=== PATIENT | female | born 1975 | race Caucasian/White ===

== ENCOUNTER → 2018-02-27 15:50 | Outpatient (CLI) | payer BC, OTHER, SELFPAY ==
--- NOTE | 2018-02-27 15:51 | DI.RAD.S_ITS ---
PROCEDURE: XR FOOT RT MIN 3V INDICATIONS: right foot pain without injury of 8-12 week duration TECHNIQUE: 3 views of the foot were acquired. COMPARISON: [facility], , FOOT 3V RIGHT, 05/02/2012, 15:06. [facility], , FOOT 3V LEFT, 05/02/2012, 15:01. FINDINGS: Bones: No fractures or dislocations. No suspicious bony lesions. Soft tissues: No tibiotalar joint effusion. Achilles tendon appears normal. IMPRESSION: No trauma found, source of persistent right foot pain is not identified. Dictated by: Feliciano Dan M.D. on 02/27/2018 at 16:21 Approved by: Feliciano Dan M.D. on 02/27/2018 at 16:21
== END ==
PROVIDERS: Family Provider Family Medicine; PCP Family Medicine; Visit Provider Nurse Practitioner Family
DX: M79.671 Pain in right foot (principal)
CPT/HCPCS: 73630

== ENCOUNTER → 2018-05-02 09:19 | Outpatient (CLI) | payer BC, OTHER, SELFPAY ==
[2018-05-02 10:22] LABS: Add Manual Diff / Slide Review NO; Basophils Percent Auto 0.5 % (0-2); Eosinophils Percent Auto 1.8 % (2-4); Hematocrit 38.4 % (36-46); Hemoglobin 13.6 g/dL (12.0-16.0); Lymphocytes Percent Auto 25.8 % (25-40); Mean Corpuscular HGB Conc 35.5 % (30-36); Mean Corpuscular Hemoglobin 31.7 PG (26-34); Mean Corpuscular Volume 89.3 fL (80-100); Monocytes Percent Auto 5.9 % (3-14); Neutrophils Absolute Auto 5400 /uL (3000-5900); Platelet Count 290 X10^3/uL (150-400); Red Cell Distribution Width 13.9 % (11.6-14.8); White Blood Cell Count 8.2 X10^3/uL (4.5-11.0)
[2018-05-02 10:57] LABS: Alanine Aminotransferase 50 IU/L (9-52); Albumin 4.2 g/dL (3.5-5.0); Albumin Globulin Ratio 1.4 (1.0-2.8); Alkaline Phosphatase 81 U/L (38-126); Aspartate Aminotransferase 39 IU/L (14-36); BUN Creatinine Ratio 16.7 (6-22); Bilirubin Total 0.4 mg/dL (0.2-1.3); Blood Urea Nitrogen 10 mg/dL (7-17); Calcium 9.2 mg/dL (8.4-10.2); Carbon Dioxide 30 mmol/L (22-32); Chloride 104 mmol/L (98-107); Cholesterol 183 mg/dL (140-199); Estimated Glomerular Filt Rate > 60.0 mL/min (>60); Glucose 118 mg/dL (70-100); HDL Cholesterol 46 mg/dL (40-60); HEMOLYSIS < 15 (0-50); LDL Cholesterol Calculated 96 mg/dL (<100); Potassium 4.1 mmol/L (3.4-5.1); Sodium 143 mmol/L (137-145); Total Protein 7.2 g/dL (6.3-8.2); Triglycerides 204 mg/dL (35-150)
[2018-05-02 11:30] LABS: Thyroid Stimulating Hormone 2.06 uIU/mL (0.47-4.68)
== END ==
PROVIDERS: Family Provider Family Medicine; PCP Family Medicine; Visit Provider Family Medicine
DX: Z00.00 Encounter for general adult medical examination without abnormal findings (principal)
CPT/HCPCS: 36415; 80053; 80061; 84443; 85025

== ENCOUNTER → 2018-05-23 08:31 | Outpatient (CLI) | payer BC, OTHER, SELFPAY ==
--- NOTE | 2018-05-23 09:44 | DI.CT.S_ITS ---
PROCEDURE: CT ABDOMEN PELVIS W CON INDICATIONS: Right sided upper, lower and flank pain TECHNIQUE: After the administration of oral and intravenous contrast, 5 mm thick sections acquired from the diaphragms to the symphysis. 5 mm thick coronal and sagittal reformats were performed. For radiation dose reduction, the following was used: automated exposure control, adjustment of mA and/or kV according to patient size. COMPARISON: [facility], CT, ABDOMEN/PELVIS WITH CONTRAST, 05/12/2015, 8:16. FINDINGS: Image quality: Excellent. ABDOMEN: Lung bases: Lung bases are clear. Heart size is normal. Solid organs: Liver is enlarged, and demonstrates diffusely decreased density, indicating fatty infiltration. Gallbladder is within normal limits. Biliary system is non-dilated. Pancreas enhances normally. Spleen is normal in size and enhancement. There is a 4 mm diameter fat containing nodule within the medial limb of the right adrenal gland. No left adrenal nodules. Kidneys are normal in size and enhancement, without hydronephrosis. Peritoneum and bowel: Stomach, small bowel, and colon loops are normal in caliber and wall thickness. No free fluid or air. Normal appendix. Nodes and vessels: No retroperitoneal or mesenteric adenopathy. Aorta and inferior vena cava are normal in caliber. Miscellaneous: No ventral hernias. PELVIS: Genitourinary: Bladder wall thickness is normal. Miscellaneous: No inguinal hernias or adenopathy. Bones: No suspicious bony lesions. No vertebral body compression fractures. IMPRESSION: 1. No acute process. 2. Hepatic steatosis. 3. Normal appendix. Dictated by: Lakshmi Lopez M.D. on 05/23/2018 at 11:03 Approved by: Lakshmi Lopez M.D. on 05/23/2018 at 11:06
== END ==
PROVIDERS: PCP Family Medicine; Visit Provider Family Medicine
DX: R10.31 Right lower quadrant pain (principal); R10.11 Right upper quadrant pain
CPT/HCPCS: 74177; Q9967

== ENCOUNTER → 2019-01-09 12:25 | Outpatient (CLI) | payer BC, OTHER, SELFPAY ==
--- NOTE | 2019-01-09 | DI.MG.S_ITS ---
BILATERAL DIGITAL SCREENING MAMMOGRAM 3D/2D WITH CAD: 01/09/2019 CLINICAL: Routine screening. Family history of breast cancer. Comparison is made to exams dated: 09/06/2017 mammogram, 05/27/2015 mammogram, and 02/27/2013 mammogram - [facility]. There are scattered fibroglandular elements in both breasts. Current study was also evaluated with a Computer Aided Detection (CAD) system. No significant masses, calcifications, or other findings are seen in either breast. There has been no significant interval change. IMPRESSION: NEGATIVE There is no mammographic evidence of malignancy. A 1 year screening mammogram is recommended. This exam was interpreted at Station ID: [id number]. NOTE: For mammograms, a report in lay terms will be sent to the patient. Approximately 15% of breast malignancies will not be visualized mammographically. In the management of a palpable breast mass, a negative mammogram must not discourage biopsy of a clinically suspicious lesion. Electronically Signed By: Neptali corey/magaly:01/11/2019 06:26:02 letter sent: Normal Exam ACR BI-RADS Category 1: Negative [id number]
== END ==
PROVIDERS: PCP Family Medicine; Visit Provider Family Medicine
DX: Z12.31 Encounter for screening mammogram for malignant neoplasm of breast (principal); Z80.3 Family history of malignant neoplasm of breast
CPT/HCPCS: 77063; 77067

== ENCOUNTER → 2019-04-24 15:01 | Outpatient (CLI) | payer BC, OTHER, SELFPAY ==
[2019-04-24 15:18] LABS: Add Manual Diff / Slide Review NO; Basophils Absolute Auto 100 /uL (0-100); Basophils Percent Auto 0.8 % (0-2); Eosinophils Absolute Auto 100 /uL (0-450); Eosinophils Percent Auto 1.4 % (2-4); Hematocrit 40.2 % (36-46); Hemoglobin 13.8 g/dL (12.0-16.0); Lymphocytes Absolute Auto 2600 /uL (1100-4500); Lymphocytes Percent Auto 29.1 % (25-40); Mean Corpuscular HGB Conc 34.2 % (30-36); Mean Corpuscular Hemoglobin 29.9 PG (26-34); Mean Corpuscular Volume 87.5 fL (80-100); Monocytes Absolute Auto 500 /uL (0-900); Neutrophils Absolute Auto 5700 /uL (1500-7000); Neutrophils Percent Auto 62.7 % (50-75); Platelet Count 257 X10^3/uL (150-400); Red Cell Distribution Width 14.4 % (11.6-14.8)
[2019-04-24 15:25] LABS: RBC Urine None Seen (0-5/HPF)
[2019-04-24 15:36] LABS: Erythrocyte Sedimentation Rate 18 MM/HR (0-20)
[2019-04-24 15:37] LABS: Appearance Urine UA CLEAR; Bilirubin Urine UA NEGATIVE (NEGATIVE); Color Urine UA YELLOW; Glucose Urine UA 1+ g/dL (Negative); Ketones Urine UA NEGATIVE (NEGATIVE); Leukocyte Esterase Urine UA NEGATIVE (NEGATIVE); Nitrite Urine UA NEGATIVE (Negative); Occult Blood Urine UA NEGATIVE (Negative); Protein Urine UA 1+ (Negative); Specific Gravity Urine UA 1.025 (1.000-1.035); Urobilinogen Urine UA 0.2 E.U./dL (0.2)
[2019-04-24 15:47] LABS: Amorphous Sediment Urine 1+; Bacteria Urine Many (>30); Culture Indicated Urine Specimen Cultured; Mucus Urine 4+ (Negative); Squamous Epithelial Cell Urine 5-10 /HPF (0-5/HPF); WBC Urine 5-10/HPF (0-5/HPF)
[2019-04-24 16:04] LABS: Alanine Aminotransferase 59 IU/L (9-52); Albumin 4.3 g/dL (3.5-5.0); Albumin Globulin Ratio 1.5 (1.0-2.8); Alkaline Phosphatase 124 U/L (38-126); Amylase 47 U/L (30-110); Aspartate Aminotransferase 68 IU/L (14-36); Bilirubin Total 0.6 mg/dL (0.2-1.3); Blood Urea Nitrogen 6 mg/dL (7-17); C-Reactive Protein Quant 1.6 mg/dL (<1.0); Calcium 9.6 mg/dL (8.4-10.2); Carbon Dioxide 30 mmol/L (22-32); Chloride 98 mmol/L (98-107); Estimated Glomerular Filt Rate > 60.0 mL/min (>60); Globulin 2.9 g/dL (1.7-4.1); Glucose 198 mg/dL (70-100); HEMOLYSIS < 15 (0-50); Lipase 113 U/L (23-300); Potassium 3.7 mmol/L (3.4-5.1); Sodium 138 mmol/L (137-145); Total Protein 7.2 g/dL (6.3-8.2)
[2019-04-25 19:13] LABS: Hemoglobin A1C% w Est Avg Glu 10.1 % (4.0-6.0)
== END ==
PROVIDERS: PCP Family Medicine; Visit Provider Family Medicine
DX: R10.9 Unspecified abdominal pain (principal); E78.2 Mixed hyperlipidemia
CPT/HCPCS: 36415; 80053; 81001; 82150; 83036; 83690; 85025; 85651; 86140; 87077; 87086

== ENCOUNTER → 2019-05-01 13:09 | Outpatient (CLI) | payer BC, OTHER, SELFPAY ==
--- NOTE | 2019-05-01 13:13 | DI.US.S_ITS ---
PROCEDURE: US PELVIC COMPLETE INDICATIONS: PELVIC PAIN TECHNIQUE: Real-time scanning was performed of the pelvic organs, with image documentation. Additional endovaginal scanning was necessary due to incomplete visualization of the adnexal and endometrial structures by transabdominal scanning. COMPARISON: [facility], , PELVIC COMPLETE, 04/14/2015, 8:22. FINDINGS: Transabdominal scanning: Limited scanning through the kidneys shows no hydronephrosis. No pathologic free abdominal or pelvic fluid. Endovaginal scanning: Uterus: Surgically absent. Ovaries: Ovaries not identified. No adnexal masses. IMPRESSION: Limited exam. The ovaries are not identified. No free fluid in the pelvis. Uterus is surgically absent. If pain persist with conservative management, consider CT. Dictated by: Mike ORANTES Interpreted: Andrew Mcmullen MD on 05/01/2019 at 15:57 Approved by: Andrew Mcmullen M.D. on 05/01/2019 at 17:16
== END ==
PROVIDERS: PCP Family Medicine; Visit Provider Family Medicine
DX: R10.2 Pelvic and perineal pain (principal); Z90.710 Acquired absence of both cervix and uterus
CPT/HCPCS: 76830; 76856

== ENCOUNTER 2019-05-05 15:50 | Emergency (ER) | payer BC, OTHER, SELFPAY ==
[2019-05-05 15:57] VITALS: BP 121/60; PULSE 87; RESP 14; TEMP 36.8; O2SAT 96
--- NOTE | 2019-05-05 16:23 | ED_ITS ---
HPI - Headache General Chief Complaint: Headache Stated Complaint: vision loss/blurriness,migraines past week Time Seen by Provider: 05/05/19 15:58 Source: patient Mode of arrival: Ambulatory Limitations: no limitations History of Present Illness HPI Narrative: Patient comes emergency department complaining of headaches and blurry vision for the last week. Patient has a new diagnosis of diabetes just over 1 week ago, and was started on metformin for this. She states that her symptoms started within a day or to starting metformin. Patient states that she has not been nauseated and has no history of migraines. No recent head injury. No fever chills. No neck pain. She states on the day she was diagnosed, her blood sugar was 198 and her hemoglobin A1c was over 10. Related Data Home Medications Medication Instructions Recorded Confirmed CHOLECALCIFEROL (VITAMIN D) 2,000 iu PO #0 04/07/11 04/24/19 Previous Rx's Medication Instructions Recorded estradiol [Estrace] 1 gm VAGINAL 2X/WEEK #120 gm 07/03/17 furosemide 40 mg tablet 40 mg PO QDAY PRN #90 tab 03/11/19 citalopram 20 mg tablet 60 mg PO QDAY #270 tab 04/24/19 gabapentin 300 mg capsule 600 mg PO BEDTIME #180 cap 04/24/19 lovastatin 20 mg tablet 20 mg PO HS #90 tab 04/24/19 mirtazapine 15 mg tablet 30 mg PO BEDTIME #60 tab 04/24/19 omeprazole 40 mg capsule,delayed 40 mg PO BID #180 cap 04/24/19 release metformin 500 mg tablet 250 mg PO BID #45 tab 04/26/19 clonazepam 0.5 mg tablet 0.5 mg PO BIDP #180 tab 04/29/19 Allergies Allergy/AdvReac Type Severity Reaction Status Date / Time ciprofloxacin Allergy Severe SEVERE Verified 04/24/19 14:27 NAUSEA Review of Systems Constitutional Constitutional: Denies chills, Denies fatigue, Denies fever(s), Denies frequent falls, Reports headache(s), Denies lethargy and Denies weakness Eyes Eyes: Reports blurry vision, Denies change in vision, Denies eye discharge, Denies irritation and Denies loss of vision ENT Ears, Nose, Mouth, and Throat: Denies change in voice, Denies dizziness, Reports headache(s), Denies neck pain, Denies sore throat and Denies throat swelling Cardiovascular Cardiovascular: Denies chest pain, Denies irregular heart rhythm, Denies lightheadedness, Denies palpitations, Denies dyspnea, Denies dyspnea on exertion and Denies orthopnea Respiratory Respiratory: Denies cough, Denies dyspnea, Denies dyspnea on exertion and Denies wheezing Gastrointestinal Gastrointestinal: Denies abdominal pain, Denies change in bowel habits, Denies diarrhea, Denies nausea and Denies vomiting Genitourinary Genitourinary: Denies hematuria, Denies flank pain, Denies urinary incontinence and Denies urinary urgency Comments: Polyuria Musculoskeletal Musculoskeletal: Denies back pain, Denies muscle weakness, Denies neck pain, Denies numbness and Denies tingling Integumentary/Breasts Skin/Breast: Denies pruritus, Denies erythema, Denies rash and Denies wounds Neurologic Neurologic: Denies behavioral changes, Denies confusion, Denies dizziness, Denies frequent falls, Reports headache(s), Denies loss of vision, Denies numbness, Denies tingling and Denies weakness Psychiatric Psychiatric: Denies anxiety, Denies behavioral changes, Denies confusion, Denies depression, Denies homicidal ideation and Denies suicidal ideation Endocrine Endocrine: Denies fatigue, Denies flushing, Reports polydipsia, Reports polyuria and Denies palpitations Hematologic/Lymphatic Hematologic/Lymphatic: Denies easy bruising Allergic/Immunologic Allergic/Immunologic: Denies urticaria, Denies throat swelling and Denies wheezing [facility] Medical History Lumbago (Chronic) Surgical History History of laparoscopy (Resolved) Status post laparoscopic supracervical hysterectomy (Resolved 12/14/10) Family History Brother CAD (coronary artery disease) Social History Smoking Status: Current every day smoker Family History Brother CAD (coronary artery disease) Social History Smoking Status: Current every day smoker Exam Initial Vital Signs Initial Vital Signs: Vital Signs Temperature 98.2 F 05/05/19 15:57 Pulse Rate 87 05/05/19 15:57 Respiratory Rate 14 05/05/19 15:57 Blood Pressure 121/60 05/05/19 15:57 Pulse Oximetry 96 05/05/19 15:57 Const General: cooperative and well developed Nutritional Appearance: well nourished Orientation: alert, awake, oriented x3 and not confused [facility] Head: normocephalic and atraumatic Ears: external ears normal and TM's normal bilaterally Nose: external nose normal and No nasal discharge Face and sinus: sinuses nontender, face symmetric, no sinus tenderness and No dry mucous membranes Mouth: oral mucosae normal and moist mucous membranes Teeth and gingiva: dentition normal Throat: tonsils normal and uvula midline Eyes General: appearance normal, both eyes and all related structures Eyelids: eyelids normal Conjunctivae: conjunctivae normal Sclera: sclerae normal Pupils: PERRL EOM: EOM intact bilaterally Neck Neck: normal visual inspection, trachea midline, No lymphadenopathy, No midline deformity and No JVD Lymphatic: No lymphedema Chest Chest: normal inspection of the chest Resp Effort & Inspection: normal respiratory effort, able to speak in complete sentences, no respiratory distress and no use of accessory muscles Auscultation: clear to auscultation bilaterally, no rales, no rhonchi and no wheezes Cardio Rate: regular rate Rhythm: regular rhythm Heart Sounds: no click, no gallops, no murmurs and no rubs Pulses: normal peripheral pulses GI Inspection: non-distended Palpation: soft, no hepatosplenomegaly, No guarding, No pulsatile mass and No tender Auscultation: normal bowel sounds Back/Spine/Pelvis Back: No CVA tenderness Cervical Spine: cervical ROM normal and No pain with cervical ROM Thoracic/Lumbar Spine: thoracic and lumbar spine normal to inspection Skin General: no rashes or lesions noted, No jaundice and No petechiae Neuro General: alert, oriented x3, gait normal and no focal motor deficits Speech: speech normal Extrem General: full ROM, no clubbing, cyanosis or edema, no pedal edema and no calf tenderness Psych Appearance: well kempt Mental Status: mental status grossly normal Attitude: cooperative Thought Content: normal and suicidality Judgment: judgment good Course Course Course Narrative: Patient was treated symptomatically with IV fluids, Toradol, and Compazine, and worked up with labs and CT of the head. Workup was unremarkable, other than the patient's blood sugar being found to be 170. I discussed with the patient that her sugars are still running higher than is ideal, despite over a week of being on metformin. She has been on 250 mg twice daily, I will increase this to 500 mg twice daily. The patient has not yet had a meeting with the diabetic dietitian, and she states she will call tomorrow to follow-up on this. I have given the patient a prescription for a glucometer, test strips, and lancets so that she can monitor her blood sugar at home. I have also encouraged her to make an appointment with Dr. Martínez for within the next week to follow up on her blood sugar levels. We have discussed the benefits of exercise in diabetes, and I have encouraged patient to drink plenty of water. We have discussed the usual indications for return. Orders Ordered: ED Orders 05/05/19 16:22 CT head/brain wo con Stat 05/05/19 16:40 Complete Blood Count AUTO DIFF Stat Comprehensive Metabolic Panel Stat 05/05/19 17:05 Urine Microscopic Stat Discontinued Medications Sodium Chloride (Normal Saline 0.9%) 1,000 mls @ 1,000 mls/hr IV BOLUS ONE Stop: 05/05/19 17:21 Last Infusion: 05/05/19 18:05 Dose: 0 mls/hr Documented by: Admin: 05/05/19 16:53 Dose: 1,000 mls/hr Documented by: STEVEN Ketorolac Tromethamine (Toradol) 30 mg IV NOW ONE Stop: 05/05/19 16:23 Last Admin: 05/05/19 16:55 Dose: 30 mg Documented by: STEVEN Prochlorperazine (Compazine) 10 mg IV NOW ONE Stop: 05/05/19 16:23 Last Admin: 05/05/19 16:55 Dose: 10 mg Documented by: STEVEN Vital Signs Vital signs: Vital Signs - 8 hr 05/05/19 15:57 05/05/19 17:03 05/05/19 19:02 Temperature 98.2 F Pulse Rate 87 69 57 L Respiratory Rate 14 Blood Pressure 121/60 Blood Pressure [Left Arm] 102/76 105/75 Pulse Oximetry 96 96 97 MDM - Headache Medical Records Attestation: I reviewed the patient's medical records. Lab Data Attestation: I reviewed the patient's lab results. Result diagrams: 05/05/19 16:40 05/05/19 16:40 Labs: Lab Results 05/05/19 05/05/19 05/05/19 Range/Units 16:40 16:40 17:05 WBC 8.3 (4.5-11.0) X10^3/uL RBC 4.62 (4.0-5.2) X10^6/uL Hgb 14.1 (12.0-16.0) g/dL Hct 40.7 (36-46) % MCV 88.2 (80-100) fL MCH 30.5 (26-34) PG MCHC 34.7 (30-36) % RDW 14.5 (11.6-14.8) % Plt Count 261 (150-400) X10^3/uL Neut % (Auto) 58.8 (50-75) % Lymph % (Auto) 32.7 (25-40) % [place] % (Auto) 5.8 (3-14) % Eos % (Auto) 2.0 (2-4) % Baso % (Auto) 0.7 (0-2) % Neut # (Auto) 4900 (6592-4205) /uL Lymph # (Auto) 2700 (6607-5402) /uL [place] # (Auto) 500 (0-900) /uL Eos # (Auto) 200 (0-450) /uL Baso # (Auto) 100 (0-100) /uL Sodium 137 (137-145) mmol/L Potassium 4.4 (3.4-5.1) mmol/L Chloride 99 (98-107) mmol/L Carbon Dioxide 29 (22-32) mmol/L BUN 7 (7-17) mg/dL Creatinine 0.50 L (0.52-1.04) mg/dL Estimated GFR > 60.0 (>60) mL/min BUN/Creatinine Ratio 14.0 (6-22) Glucose 170 H (70-100) mg/dL Calcium 9.8 (8.4-10.2) mg/dL Total Bilirubin 0.5 (0.2-1.3) mg/dL AST 62 H (14-36) IU/L ALT 63 H (9-52) IU/L Alkaline Phosphatase 112 (38-126) U/L Total Protein 7.5 (6.3-8.2) g/dL Albumin 4.4 (3.5-5.0) g/dL Globulin 3.1 (1.7-4.1) g/dL Albumin/Globulin Ratio 1.4 (1.0-2.8) Urine RBC None seen (0-5/HPF) Urine WBC 1-5/hpf (0-5/HPF) Ur Squamous Epith Cells 10-30 /hpf H (0-5/HPF) Urine Bacteria Many (>30) H (None) Ur Culture Indicated? Cult not indicated Point of Care Testing Test Results Negative Glucose POC 158 Urine Dip Bedside Urine Glucose 100 mg/dl Bedside Urine Bilirubin + 1 Bedside Urine Ketone +/- 5 Urine Specific Antoine 1.020 Bedside Urine Occult Blood - Negative Bedside Urine pH 6.0 Bedside Urine Protein +/- 15 Bedside Urine Urobilinogen +/- 1mg Bedside Urine Nitrite - Negative Bedside Urine Leukocytes - Negative Esterase Imaging Data CT scan - head: Radiologist's impression: PROCEDURE: CT HEAD/BRAIN WO CON INDICATIONS: headache, visual change TECHNIQUE: Noncontrast 4.5 mm thick angled axial sections acquired from the foramen magnum to the vertex, with coronal and sagittal reformats. For radiation dose reduction, the following was used: automated exposure control, adjustment of mA and/or kV according to patient size. COMPARISON: [facility], CT, SINUS SCREEN WO CONTRAST, 03/23/2016, 11:09. [facility], MR, BRAIN (IAC) W AND WO CONTRAST, 05/31/2011, 21:18. FINDINGS: Image quality: Excellent. CSF spaces: Basal cisterns are patent. No extra-axial fluid collections. Ventricles are normal in size and shape. Brain: No midline shift. No intracranial masses or hemorrhage. Arora-white matter interface is normal. Skull and face: Calvarium and visualized facial bones are intact, without suspicious lesions. Sinuses: Visualized sinuses and mastoids are clear. IMPRESSION: Unremarkable intracranial study, without an imaging explanation found for the patient's presenting history of headache. No acute intracranial hemorrhage. No masses or mass effect. Dictated by: Sami Knight M.D. on 05/05/2019 at 15:54 Approved by: Sami Knight M.D. on 05/05/2019 at 15:55 Discharge Plan Departure Patient Disposition: Home Clinical Impression: Headache Qualifiers: Headache type: unspecified Headache chronicity pattern: acute headache Intractability: not intractable Qualified Code(s): R51 - Headache Hyperglycemia due to type 2 diabetes mellitus Qualifiers: Diabetes mellitus correction insulin use: without correction use Qualified Code(s): E11.65 - Type 2 diabetes mellitus with hyperglycemia Discharge Date/Time: 05/05/19 19:26 Instructions: DI for Diabetes Type 2, DI for Headache Activity Restrictions/Additional Instructions: Your CT scan looks good. There is no evidence of any abnormality in your brain. Your blood sugar today is 170, which is still rather high, given that you are on metformin. At this point, it is advisable to increase your metformin to get a little better control of your blood sugar. We will increase your dose to 500 mg twice a day and have you follow up with your primary care physician within the next week. Prescriptions: No Action CHOLECALCIFEROL (VITAMIN D) 2,000 iu PO Qty: 0 RF: 0 estradiol [Estrace] 0.01 % cream 1 gm Vaginal 2X/WEEK Qty: 120 RF: 5 furosemide 40 mg tablet 40 mg PO QDAY PRN (Reason: edema) Qty: 90 RF: 0 Hold Instructions: side efects metformin 500 mg tablet 250 mg PO BID Qty: 45 RF: 0 clonazepam 0.5 mg tablet 0.5 mg PO BIDP Qty: 180 RF: 0 citalopram 20 mg tablet 60 mg PO QDAY Qty: 270 RF: 3 gabapentin [Neurontin] 300 mg capsule 600 mg PO BEDTIME Qty: 180 RF: 3 lovastatin 20 mg tablet 20 mg PO HS Qty: 90 RF: 2 mirtazapine [Remeron] 15 mg tablet 30 mg PO BEDTIME Qty: 60 RF: 3 omeprazole 40 mg capsule,delayed release(DR/EC) 40 mg PO BID Qty: 180 RF: 3 Referrals: Tyler Martínez MD [Primary Care Provider] -
[2019-05-05 16:49] LABS: Add Manual Diff / Slide Review NO; Basophils Absolute Auto 100 /uL (0-100); Basophils Percent Auto 0.7 % (0-2); Eosinophils Absolute Auto 200 /uL (0-450); Hematocrit 40.7 % (36-46); Hemoglobin 14.1 g/dL (12.0-16.0); Lymphocytes Absolute Auto 2700 /uL (1100-4500); Lymphocytes Percent Auto 32.7 % (25-40); Mean Corpuscular HGB Conc 34.7 % (30-36); Mean Corpuscular Hemoglobin 30.5 PG (26-34); Mean Corpuscular Volume 88.2 fL (80-100); Monocytes Absolute Auto 500 /uL (0-900); Monocytes Percent Auto 5.8 % (3-14); Neutrophils Absolute Auto 4900 /uL (1500-7000); Neutrophils Percent Auto 58.8 % (50-75); Platelet Count 261 X10^3/uL (150-400); Red Blood Cell Count 4.62 X10^6/uL (4.0-5.2); Red Cell Distribution Width 14.5 % (11.6-14.8); White Blood Cell Count 8.3 X10^3/uL (4.5-11.0)
--- NOTE | 2019-05-05 16:49 | PC.NURSE ---
started new medications, metformin a week ago, now with progressing headache, visual haze, photophobia,
[2019-05-05] MEDS: SODIUM CHLORIDE 0.9% 1,000 ML 1000 ML IV (16:53)
[2019-05-05] MEDS: KETOROLAC 60 MG/2 ML VIAL 30 MG IV (16:55)
[2019-05-05] MEDS: PROCHLORPERAZINE 10 MG/2 ML VIAL IV (16:55)
[2019-05-05 17:00] LABS: Alanine Aminotransferase 63 IU/L (9-52); Albumin 4.4 g/dL (3.5-5.0); Albumin Globulin Ratio 1.4 (1.0-2.8); Alkaline Phosphatase 112 U/L (38-126); Aspartate Aminotransferase 62 IU/L (14-36); Bilirubin Total 0.5 mg/dL (0.2-1.3); Blood Urea Nitrogen 7 mg/dL (7-17); Calcium 9.8 mg/dL (8.4-10.2); Carbon Dioxide 29 mmol/L (22-32); Chloride 99 mmol/L (98-107); Estimated Glomerular Filt Rate > 60.0 mL/min (>60); Globulin 3.1 g/dL (1.7-4.1); Glucose 170 mg/dL (70-100); HEMOLYSIS < 15 (0-50); Potassium 4.4 mmol/L (3.4-5.1); Sodium 137 mmol/L (137-145); Total Protein 7.5 g/dL (6.3-8.2)
[2019-05-05 17:03] VITALS: BP 102/76; PULSE 69; O2SAT 96
[2019-05-05 17:24] LABS: RBC Urine None Seen (0-5/HPF)
[2019-05-05 17:32] LABS: Bacteria Urine Many (>30); Culture Indicated Urine Cult Not Indicated; Squamous Epithelial Cell Urine 10-30 /HPF (0-5/HPF); WBC Urine 1-5/HPF (0-5/HPF)
[2019-05-05 19:02] VITALS: BP 105/75; PULSE 57; O2SAT 97
== END 2019-05-05 19:26 | disposition home or self-care (01) ==
PROVIDERS: Emergency Provider Emergency Medicine; PCP Family Medicine
DX: E11.65 Type 2 diabetes mellitus with hyperglycemia (principal); R51 Headache
CPT/HCPCS: 36415; 70450; 80053; 81003; 81015; 81025; 82962; 85025; 96361; 96374; 96375; 99283; 99284; J0780; J1885

== ENCOUNTER → 2019-05-08 10:56 | Outpatient (CLI) | payer BC, OTHER, SELFPAY ==
--- NOTE | 2019-05-08 11:39 | DI.CT.S_ITS ---
PROCEDURE: CT ABDOMEN PELVIS W CON INDICATIONS: pain TECHNIQUE: After the administration of oral and intravenous contrast, 5 mm thick sections acquired from the diaphragms to the symphysis. 5 mm thick coronal and sagittal reformats were performed. For radiation dose reduction, the following was used: automated exposure control, adjustment of mA and/or kV according to patient size. COMPARISON: [facility], CT, CT ABDOMEN PELVIS W CON, 05/23/2018, 9:48. FINDINGS: Image quality: Excellent. ABDOMEN: Lung bases: No acute consolidation. Scattered subsegmental atelectasis and/or scarring. No pleural effusion. Elevation of the right hemidiaphragm Solid organs: Hepatic steatosis. Gallbladder contains 2 mm gallstone otherwise unremarkable. Biliary system is non-dilated. Pancreas enhances normally. Spleen is normal in size and enhancement. Adrenal glands unremarkable. Kidneys are within normal limits for age, without hydronephrosis. Peritoneum and bowel: Stomach, small bowel, and colon loops are normal in caliber and wall thickness. No free fluid or air. Appendix unremarkable. Colonic diverticulosis incidentally noted Nodes and vessels: No retroperitoneal or mesenteric adenopathy. Aorta and inferior vena cava are normal in caliber. Miscellaneous: No ventral hernias. PELVIS: Genitourinary: Bladder wall thickness is normal. Miscellaneous: No inguinal hernias or adenopathy. Bones: No suspicious bony lesions. No vertebral body compression fractures. IMPRESSION: Normal appearance of the appendix. Incidental 2 mm gallstone. Colonic diverticulosis. Hepatic steatosis. No acute process seen. Dictated by: Miguel Angel Weinberg M.D. on 05/08/2019 at 12:23 Approved by: Miguel Angel Weinberg M.D. on 05/08/2019 at 12:28
== END ==
PROVIDERS: PCP Family Medicine; Visit Provider Family Medicine
DX: R10.9 Unspecified abdominal pain (principal); K57.90 Diverticulosis of intestine, part unspecified, without perforation or abscess without bleeding; K80.20 Calculus of gallbladder without cholecystitis without obstruction; K76.0 Fatty (change of) liver, not elsewhere classified
CPT/HCPCS: 74177; Q9967

== ENCOUNTER → 2019-07-03 16:58 | Outpatient (CLI) | payer BC, OTHER, SELFPAY ==
[2019-07-03 17:55] LABS: Hemoglobin A1C% w Est Avg Glu 6.7 % (4.0-6.0)
== END ==
PROVIDERS: PCP Family Medicine; Visit Provider Family Medicine
DX: E11.9 Type 2 diabetes mellitus without complications (principal)
CPT/HCPCS: 36415; 83036

== ENCOUNTER → 2019-10-30 10:34 | Outpatient (CLI) | payer BC, OTHER, SELFPAY ==
[2019-10-30 14:38] LABS: Hemoglobin A1C% w Est Avg Glu 6.9 % (4.0-6.0)
== END ==
PROVIDERS: PCP Family Medicine; Referring Provider Family Medicine; Visit Provider Family Medicine
DX: E11.9 Type 2 diabetes mellitus without complications (principal)
CPT/HCPCS: 36415; 83036

== ENCOUNTER → 2020-02-26 09:45 | Outpatient (CLI) | payer BC, OTHER, SELFPAY ==
[2020-02-26 10:48] LABS: Hemoglobin A1C% w Est Avg Glu 6.6 % (4.0-6.0)
[2020-02-26 10:55] LABS: BUN Creatinine Ratio 15.8 (6-22); Blood Urea Nitrogen 9 mg/dL (7-17); Calcium 9.5 mg/dL (8.4-10.2); Carbon Dioxide 25 mmol/L (22-32); Chloride 102 mmol/L (98-107); Estimated Glomerular Filt Rate > 60.0 mL/min (>60); Glucose 216 mg/dL (70-100); HEMOLYSIS < 15 (0-50); Sodium 136 mmol/L (137-145)
== END ==
PROVIDERS: PCP Family Medicine; Referring Provider Family Medicine; Visit Provider Family Medicine
DX: E11.9 Type 2 diabetes mellitus without complications (principal); E78.2 Mixed hyperlipidemia; R79.89 Other specified abnormal findings of blood chemistry
CPT/HCPCS: 36415; 80048; 83036

== ENCOUNTER → 2020-06-30 14:11 | Outpatient (CLI) | payer BC, OTHER, SELFPAY ==
[2020-06-30 14:55] LABS: Add Manual Diff / Slide Review NO; Basophils Absolute Auto 0 /uL (0-100); Basophils Percent Auto 0.4 % (0-2); Eosinophils Absolute Auto 100 /uL (0-450); Eosinophils Percent Auto 1.1 % (2-4); Hematocrit 39.5 % (36-46); Hemoglobin 13.5 g/dL (12.0-16.0); Lymphocytes Absolute Auto 2800 /uL (1100-4500); Lymphocytes Percent Auto 23.9 % (25-40); Mean Corpuscular HGB Conc 34.1 % (30-36); Mean Corpuscular Hemoglobin 29.2 PG (26-34); Mean Corpuscular Volume 85.6 fL (80-100); Monocytes Absolute Auto 600 /uL (0-900); Monocytes Percent Auto 5.6 % (3-14); Neutrophils Absolute Auto 8000 /uL (1500-7000); Platelet Count 308 X10^3/uL (150-400); Red Blood Cell Count 4.62 X10^6/uL (4.0-5.2); Red Cell Distribution Width 14.4 % (11.6-14.8); White Blood Cell Count 11.6 X10^3/uL (4.5-11.0)
[2020-06-30 15:13] LABS: Hemoglobin A1C% w Est Avg Glu 6.9 % (4.0-6.0)
[2020-06-30 16:00] LABS: Alanine Aminotransferase 28 IU/L (<35); Albumin 4.4 g/dL (3.5-5.0); Albumin Globulin Ratio 1.5 (1.0-2.8); Alkaline Phosphatase 100 U/L (38-126); Aspartate Aminotransferase 28 IU/L (14-36); BUN Creatinine Ratio 23.8 (6-22); Bilirubin Total 0.3 mg/dL (0.2-1.3); Blood Urea Nitrogen 15 mg/dL (7-17); Calcium 9.7 mg/dL (8.4-10.2); Carbon Dioxide 31 mmol/L (22-32); Chloride 102 mmol/L (98-107); Cholesterol 205 mg/dL (140-199); Estimated Glomerular Filt Rate > 60.0 mL/min (>60); Globulin 2.9 g/dL (1.7-4.1); Glucose 153 mg/dL (70-100); HDL Cholesterol 50 mg/dL (40-60); HEMOLYSIS < 15 (0-50); LDL Cholesterol Calculated 81 mg/dL (<100); Potassium 4.7 mmol/L (3.4-5.1); Sodium 137 mmol/L (137-145); Total Protein 7.3 g/dL (6.3-8.2); Triglycerides 372 mg/dL (35-150)
== END ==
PROVIDERS: PCP Family Medicine; Referring Provider Family Medicine; Visit Provider Family Medicine
DX: E11.9 Type 2 diabetes mellitus without complications (principal)
CPT/HCPCS: 36415; 80053; 80061; 83036; 85025

== ENCOUNTER → 2020-07-02 14:05 | Outpatient (CLI) | payer BC, OTHER, SELFPAY ==
--- NOTE | 2020-07-02 14:06 | DI.MRI.S_ITS ---
PROCEDURE: MR HEAD/BRAIN WO CON INDICATIONS: syncope, TECHNIQUE: Noncontrast axial T1 spin echo, axial T2 fast spin echo, sagittal and axial FLAIR, coronal T2 fast spin echo, axial gradient echo, axial diffusion and ADC through the brain. COMPARISON: None. FINDINGS: Image quality: Excellent. CSF Spaces: Basal cisterns are patent. No extra-axial fluid collections. Ventricles are normal in size and shape. Brain: No intracranial masses or hemorrhage. Arora/white matter interface is normal. Brainstem appears normal. Diffusion-weighted images demonstrate no acute ischemic insult. No chronic ischemic insults. Normal intravascular flow voids are present. Skull and face: Calvarium has normal marrow signal. Orbits appear normal. Sinuses: Sinuses and mastoids are clear. IMPRESSION: Normal for age, source of current episodes of syncope symptoms is not seen. Dictated by: Feliciano Dan M.D. on 07/02/2020 at 15:23 Approved by: Feliciano Dan M.D. on 07/02/2020 at 15:24
== END ==
PROVIDERS: PCP Family Medicine; Referring Provider Family Medicine; Visit Provider Family Medicine
DX: R55 Syncope and collapse (principal)
CPT/HCPCS: 70551

== ENCOUNTER → 2020-07-02 15:55 | Outpatient (CLI) | payer BC, OTHER, SELFPAY ==
--- NOTE | 2020-07-21 07:55 | PM.CARDMON.1 ---
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 No etiology for syncope identified on this study.
== END ==
PROVIDERS: Family Provider Family Medicine; PCP Family Medicine; Referring Provider Family Medicine; Visit Provider Family Medicine
DX: R55 Syncope and collapse (principal)
CPT/HCPCS: 0296T; 0298T

== ENCOUNTER 2020-07-06 15:32 | Emergency (ER) | payer BC, OTHER, SELFPAY ==
[2020-07-06] VITALS (9 sets, daily range): BP systolic 104–126; BP diastolic 61–79; PULSE 65–81; RESP 12–22; O2SAT 96–99
--- NOTE | 2020-07-06 15:48 | ED.AMS ---
HPI - Altered Mental Status General Chief Complaint: Syncope Stated Complaint: Passed Out Time Seen by Provider: 07/06/20 15:47 Source: patient and family Mode of arrival: Family Vehicle Limitations: altered mental status History of Present Illness HPI narrative: 45-year-old female comes to the emergency department unresponsive. She was in the car, she was assisted out by the nursing staff. Her daughter Kita is at bedside and states that she has had several these episodes, the often last 20 or 30 minutes and then she will have difficulty moving. She states her mother has told her that she can hear everything that is happening but that she cannot respond or moved. She is currently has a ZIO patch in place for evaluation. Her most recent episode occurred last night, she called her primary care today who told her to come in for evaluation. Patient herself is not responsive at this time. Related Data Home Medications Medication Instructions Recorded Confirmed CHOLECALCIFEROL (VITAMIN D) 2,000 iu PO #0 04/07/11 07/01/20 calcium carbonate PO 09/24/19 07/01/20 Previous Rx's Medication Instructions Recorded omeprazole 40 mg capsule,delayed 40 mg PO BID #180 cap 04/24/19 release Blood Glucose Test Strip #100 each 08/21/19 lancets #200 each 08/27/19 gabapentin 300 mg capsule See Rx Instructions PO .COMPLEX 04/28/20 #180 cap citalopram 20 mg tablet See Rx Instructions .ROUTE 05/19/20 .COMPLEX #270 tablet metformin 500 mg tablet 500 mg PO BID #180 tab 05/27/20 clonazepam 0.5 mg tablet See Rx Instructions .ROUTE 07/02/20 .COMPLEX #180 tab lovastatin 20 mg tablet See Rx Instructions .ROUTE 07/02/20 .COMPLEX #90 tab mirtazapine 15 mg tablet 30 mg PO BEDTIME #180 tab 07/02/20 Allergies Allergy/AdvReac Type Severity Reaction Status Date / Time ciprofloxacin Allergy Severe SEVERE Verified 07/01/20 15:50 NAUSEA lactose Allergy Intermediate upset Verified 07/01/20 15:50 stomach Review of Systems Review of Systems ROS Unobtainable: Unobtainable due to mental status/LOC Patient History Medical History (Updated 07/06/20 @ 18:20 by Elana Madsen DO) Lumbago Surgical History History of laparoscopy Status post laparoscopic supracervical hysterectomy (12/14/10) Family History Brother CAD (coronary artery disease) Social History Smoking Status: Current every day smoker (Vape daily - nicotine) Smoking Status: Current every day smoker (Vape daily - nicotine) tobacco type: vaping Exam Narrative Exam Narrative: GEN: well nourished, obese, unresponsive, patient does have some movement to sternal rub. Patient is not warm to the touch, afebrile. HEENT: Atraumatic, pupils are equal round reactive to light, extraocular movements are intact, when attempting to open eyelids there is resistance bilaterally, nares are clear, TMs are clear with no fluid, there is no conjunctival pallor. Throat is clear without any exudates, erythema, tonsillar enlargement or uvular deviation, no facial droop. HEART: Regular rate and rhythm without murmur, clicks, rubs. Pulses are equal in upper and lower extremities LUNGS:Lungs clear to auscultation, no wheezes, rales, crackles, chest moves symmetrically, no tachypnea accessory muscle use. ABD:bowel sounds normal, soft, non-tender, no guarding, rebound, rigidity, no masses noted, no hepatosplenomegaly :No CVA tenderness MSCL: Non-tender NEURO:CN 2-12 intact, sensation normal, reflexes 2/4 upper and lower extremities. When arm is lifted above patient's face it falls to her side. SKIN: No rash, no erythema, no skin changes. Initial Vital Signs Initial Vital Signs: Vital Signs Pulse Rate 81 07/06/20 15:49 Respiratory Rate 16 07/06/20 15:49 Blood Pressure 126/61 07/06/20 15:49 Pulse Oximetry 96 07/06/20 15:49 Scores GCS Alicia coma scale eye opening: None Evans coma scale verbal response: None Alicia coma scale motor response: Localising Alicia coma scale total score: 7 Course Orders Ordered: ED Orders 07/06/20 15:45 Acetaminophen Stat Complete Blood Count AUTO DIFF Stat Comprehensive Metabolic Panel Stat Ethanol (ETOH) Stat Lactate (Lactic Acid) Stat Partial Thromboplastin Time Stat Prolactin Stat Prothrombin Time INR Stat Salicylate Stat Thyroid Stimulating Hormone Stat Troponin & CK Cardiac Panel Stat 07/06/20 15:47 Ammonia (NH3) Stat Blood Culture Stat EKG-12 Lead Stat 07/06/20 15:48 CT head/brain wo con Stat XR chest 1V Stat 07/06/20 15:53 Arterial Blood Gas Stat 07/06/20 17:14 Urinalysis and Microscopic Stat Urine Drug Screen, Rapid Stat Discontinued Medications Sodium Chloride (Normal Saline 0.9%) 1,000 mls @ 1,000 mls/hr IV BOLUS ONE Stop: 07/06/20 16:46 Last Admin: 07/06/20 16:09 Dose: 1,000 mls/hr Documented by: THALIA Naloxone HCl (Naloxone 0.4 Mg/Ml Vial) 0.4 mg IV NOW ONE Stop: 07/06/20 16:06 Last Admin: 07/06/20 16:12 Dose: 0.4 mg Documented by: THLAIA Reevaluation(s) Reevaluation #1: Patient re-evaluated, this time she is alert, appropriate. Patient had reassuring vitals throughout her stay including during her the episode of symptoms. She improved after short period of time in the department. Patient's imaging including her MRI on July 02 do not show any acute changes. Her lab work does not show any cause for her symptomatology today. She has had 4 episodes the 1st was in February and she has had 3 in the past 48 hours. She states that she is able to here and observed everything but can not move, speak or open her eyes. She states she can not move her ice to respond to her family. Afterwards she feels tired but normal. She has had some mild sensation that some things going to happen prior to but other than this she has not had any symptomatology otherwise. She is a diabetic and has had her sugar checked on prior episodes and that was negative. We discussed plan of care, we also discussed that she should not drive, swim or take baths alone, she should not be in hazardous situations where she could potentially have an episode and have harm come to herself. Her daughter Janett was at bedside for this discussion. Time: 18:05 Vital Signs Vital signs: Vital Signs - 8 hr 07/06/20 15:49 07/06/20 15:53 07/06/20 16:30 Pulse Rate 81 80 68 Respiratory Rate 16 15 14 Blood Pressure 126/61 Pulse Oximetry 96 96 97 07/06/20 16:58 07/06/20 17:00 07/06/20 17:09 Pulse Rate 75 68 67 Respiratory Rate 22 16 15 Blood Pressure 120/79 105/65 117/67 Pulse Oximetry 98 98 98 07/06/20 17:30 07/06/20 18:00 07/06/20 18:28 Pulse Rate 65 67 68 Respiratory Rate 18 12 Blood Pressure 104/63 Pulse Oximetry 98 99 96 MDM - Altered Mental Status Lab Data Attestation: I reviewed the patient's lab results. Result diagrams: 07/06/20 15:45 07/06/20 15:45 Labs: Lab Results 07/06/20 07/06/20 07/06/20 Range/Units 15:45 15:45 15:45 WBC 11.7 H (4.5-11.0) X10^3/uL RBC 4.71 (4.0-5.2) X10^6/uL Hgb 13.8 (12.0-16.0) g/dL Hct 40.7 (36-46) % MCV 86.4 (80-100) fL MCH 29.3 (26-34) PG MCHC 33.9 (30-36) % RDW 14.5 (11.6-14.8) % Plt Count 302 (150-400) X10^3/uL Neut % (Auto) 64.8 (50-75) % Lymph % (Auto) 27.0 (25-40) % Daggett % (Auto) 5.8 (3-14) % Eos % (Auto) 1.2 L (2-4) % Baso % (Auto) 1.2 (0-2) % Neut # (Auto) 7600 H (7036-7695) /uL Lymph # (Auto) 3200 (9028-4786) /uL Daggett # (Auto) 700 (0-900) /uL Eos # (Auto) 100 (0-450) /uL Baso # (Auto) 100 (0-100) /uL PT 12.2 (10.1-12.7) SECONDS INR 1.1 (0.9-1.3) APTT 31 (26.4-36.2) SECONDS ABG pH (7.35-7.45) ABG pCO2 (35-45) mmHg ABG pO2 (80-100) mmHg ABG HCO3 (22-26) mmol/L ABG Total CO2 (21-31) mmol/L ABG O2 Saturation (95-100) % ABG Base Excess (-2-2) mmol/L FiO2 Sodium 137 (137-145) mmol/L Potassium 4.4 (3.4-5.1) mmol/L Chloride 102 (98-107) mmol/L Carbon Dioxide 31 (22-32) mmol/L BUN 8 (7-17) mg/dL Creatinine 0.64 (0.52-1.04) mg/dL Estimated GFR > 60.0 (>60) mL/min BUN/Creatinine Ratio 12.5 (6-22) Glucose 103 H (70-100) mg/dL Lactate (0.7-2.1) mmol/L Calcium 9.7 (8.4-10.2) mg/dL Total Bilirubin 0.4 (0.2-1.3) mg/dL AST 27 (14-36) IU/L ALT 28 (<35) IU/L Alkaline Phosphatase 94 (38-126) U/L Ammonia (9-30) umol/L Total Creatine Kinase 48 (30-135) U/L CK-MB (CK-2) TNP CK-MB (CK-2) Rel Index TNP Troponin I < 0.012 (0.01-0.034) ng/mL Total Protein 7.9 (6.3-8.2) g/dL Albumin 4.5 (3.5-5.0) g/dL Globulin 3.4 (1.7-4.1) g/dL Albumin/Globulin Ratio 1.3 (1.0-2.8) TSH (0.47-4.68) uIU/mL Prolactin 8.8 (3.0-18.6) ng/mL Urine Color Urine Appearance Urine pH (4.5-8.0) Ur Specific Lookout (1.000-1.035) Urine Protein (Negative) Urine Glucose (UA) (Negative) g/dL Urine Ketones (NEGATIVE) Urine Occult Blood (Negative) Urine Nitrate (Negative) Urine Bilirubin (NEGATIVE) Urine Urobilinogen (0.2) E.U./dL Ur Leukocyte Esterase (NEGATIVE) Urine RBC (0-5/HPF) Urine WBC (0-5/HPF) Urine Bacteria (None) Ur Culture Indicated? Micro UA Comment Salicylates < 1.0 (<20) mg/dL U Opiates 300ng/mL cut (Negative) Ur Oxycodone Screen (Negative) Urine Methadone Screen (Negative) Acetaminophen < 10 L (10-30) ug/mL Ur Barbiturates Screen (Negative) U Tricyclic Antidepress (Negative) Ur Phencyclidine Scrn (Negative) Ur Amphetamines Screen (Negative) U Methamphetamines Scrn (Negative) Ur MDMA Scrn (Ecstasy) (Negative) U Benzodiazepines Scrn (Negative) Urine Cocaine Screen (Negative) U Marijuana (THC) Screen (Negative) Ethyl Alcohol < 10 ( - 10) mg/dL 07/06/20 07/06/20 07/06/20 Range/Units 15:45 15:45 15:53 WBC (4.5-11.0) X10^3/uL RBC (4.0-5.2) X10^6/uL Hgb (12.0-16.0) g/dL Hct (36-46) % MCV (80-100) fL MCH (26-34) PG MCHC (30-36) % RDW (11.6-14.8) % Plt Count (150-400) X10^3/uL Neut % (Auto) (50-75) % Lymph % (Auto) (25-40) % Daggett % (Auto) (3-14) % Eos % (Auto) (2-4) % Baso % (Auto) (0-2) % Neut # (Auto) (3219-9473) /uL Lymph # (Auto) (0008-6175) /uL Daggett # (Auto) (0-900) /uL Eos # (Auto) (0-450) /uL Baso # (Auto) (0-100) /uL PT (10.1-12.7) SECONDS INR (0.9-1.3) APTT (26.4-36.2) SECONDS ABG pH 7.45 (7.35-7.45) ABG pCO2 38.0 (35-45) mmHg ABG pO2 78 L (80-100) mmHg ABG HCO3 26 (22-26) mmol/L ABG Total CO2 27 (21-31) mmol/L ABG O2 Saturation 96 (95-100) % ABG Base Excess 2.0 (-2-2) mmol/L FiO2 21 Sodium (137-145) mmol/L Potassium (3.4-5.1) mmol/L Chloride (98-107) mmol/L Carbon Dioxide (22-32) mmol/L BUN (7-17) mg/dL Creatinine (0.52-1.04) mg/dL Estimated GFR (>60) mL/min BUN/Creatinine Ratio (6-22) Glucose (70-100) mg/dL Lactate 1.4 (0.7-2.1) mmol/L Calcium (8.4-10.2) mg/dL Total Bilirubin (0.2-1.3) mg/dL AST (14-36) IU/L ALT (<35) IU/L Alkaline Phosphatase (38-126) U/L Ammonia (9-30) umol/L Total Creatine Kinase (30-135) U/L CK-MB (CK-2) CK-MB (CK-2) Rel Index Troponin I (0.01-0.034) ng/mL Total Protein (6.3-8.2) g/dL Albumin (3.5-5.0) g/dL Globulin (1.7-4.1) g/dL Albumin/Globulin Ratio (1.0-2.8) TSH 2.38 (0.47-4.68) uIU/mL Prolactin (3.0-18.6) ng/mL Urine Color Urine Appearance Urine pH (4.5-8.0) Ur Specific Lookout (1.000-1.035) Urine Protein (Negative) Urine Glucose (UA) (Negative) g/dL Urine Ketones (NEGATIVE) Urine Occult Blood (Negative) Urine Nitrate (Negative) Urine Bilirubin (NEGATIVE) Urine Urobilinogen (0.2) E.U./dL Ur Leukocyte Esterase (NEGATIVE) Urine RBC (0-5/HPF) Urine WBC (0-5/HPF) Urine Bacteria (None) Ur Culture Indicated? Micro UA Comment Salicylates (<20) mg/dL U Opiates 300ng/mL cut (Negative) Ur Oxycodone Screen (Negative) Urine Methadone Screen (Negative) Acetaminophen (10-30) ug/mL Ur Barbiturates Screen (Negative) U Tricyclic Antidepress (Negative) Ur Phencyclidine Scrn (Negative) Ur Amphetamines Screen (Negative) U Methamphetamines Scrn (Negative) Ur MDMA Scrn (Ecstasy) (Negative) U Benzodiazepines Scrn (Negative) Urine Cocaine Screen (Negative) U Marijuana (THC) Screen (Negative) Ethyl Alcohol ( - 10) mg/dL 07/06/20 07/06/20 07/06/20 Range/Units 17:13 17:14 17:14 WBC (4.5-11.0) X10^3/uL RBC (4.0-5.2) X10^6/uL Hgb (12.0-16.0) g/dL Hct (36-46) % MCV (80-100) fL MCH (26-34) PG MCHC (30-36) % RDW (11.6-14.8) % Plt Count (150-400) X10^3/uL Neut % (Auto) (50-75) % Lymph % (Auto) (25-40) % Daggett % (Auto) (3-14) % Eos % (Auto) (2-4) % Baso % (Auto) (0-2) % Neut # (Auto) (3492-8258) /uL Lymph # (Auto) (3477-0780) /uL Daggett # (Auto) (0-900) /uL Eos # (Auto) (0-450) /uL Baso # (Auto) (0-100) /uL PT (10.1-12.7) SECONDS INR (0.9-1.3) APTT (26.4-36.2) SECONDS ABG pH (7.35-7.45) ABG pCO2 (35-45) mmHg ABG pO2 (80-100) mmHg ABG HCO3 (22-26) mmol/L ABG Total CO2 (21-31) mmol/L ABG O2 Saturation (95-100) % ABG Base Excess (-2-2) mmol/L FiO2 Sodium (137-145) mmol/L Potassium (3.4-5.1) mmol/L Chloride (98-107) mmol/L Carbon Dioxide (22-32) mmol/L BUN (7-17) mg/dL Creatinine (0.52-1.04) mg/dL Estimated GFR (>60) mL/min BUN/Creatinine Ratio (6-22) Glucose (70-100) mg/dL Lactate (0.7-2.1) mmol/L Calcium (8.4-10.2) mg/dL Total Bilirubin (0.2-1.3) mg/dL AST (14-36) IU/L ALT (<35) IU/L Alkaline Phosphatase (38-126) U/L Ammonia < 9 L (9-30) umol/L Total Creatine Kinase (30-135) U/L CK-MB (CK-2) CK-MB (CK-2) Rel Index Troponin I (0.01-0.034) ng/mL Total Protein (6.3-8.2) g/dL Albumin (3.5-5.0) g/dL Globulin (1.7-4.1) g/dL Albumin/Globulin Ratio (1.0-2.8) TSH (0.47-4.68) uIU/mL Prolactin (3.0-18.6) ng/mL Urine Color Yellow Urine Appearance Clear Urine pH 7.5 (4.5-8.0) Ur Specific Lookout 1.010 (1.000-1.035) Urine Protein Negative (Negative) Urine Glucose (UA) Negative (Negative) g/dL Urine Ketones Negative (NEGATIVE) Urine Occult Blood Negative (Negative) Urine Nitrate Negative (Negative) Urine Bilirubin Negative (NEGATIVE) Urine Urobilinogen 0.2 (0.2) E.U./dL Ur Leukocyte Esterase Negative (NEGATIVE) Urine RBC None seen (0-5/HPF) Urine WBC None seen (0-5/HPF) Urine Bacteria None seen (None) Ur Culture Indicated? Cult not indicated Micro UA Comment Microscopic normal Salicylates (<20) mg/dL U Opiates 300ng/mL cut Negative (Negative) Ur Oxycodone Screen Negative (Negative) Urine Methadone Screen Negative (Negative) Acetaminophen (10-30) ug/mL Ur Barbiturates Screen Negative (Negative) U Tricyclic Antidepress Negative (Negative) Ur Phencyclidine Scrn Negative (Negative) Ur Amphetamines Screen Negative (Negative) U Methamphetamines Scrn Negative (Negative) Ur MDMA Scrn (Ecstasy) Negative (Negative) U Benzodiazepines Scrn Negative (Negative) Urine Cocaine Screen Negative (Negative) U Marijuana (THC) Screen Negative (Negative) Ethyl Alcohol ( - 10) mg/dL Point of Care Testing Glucose POC 86 Imaging Data Chest x-ray: Radiologist's Impression: [address] [id number] ReportSigned Patient: Liane Knowles AMR#: [id number]: 1975Acct:[id number]/Sex: 45 / FDate of Service: 07/06/20Loc: EDAccession Number: [id number] Procedure: XR chest 1V Ordering Provider: Elana Madsen D.O. PROCEDURE: XR CHEST 1V INDICATIONS: altered mental status TECHNIQUE: One view of the chest was acquired. COMPARISON: [facility], CR, XR CHEST 1 VIEW, 08/02/2017, 15:39. Located Within [facility], CT, CT HEAD/BRAIN WO CON, 07/06/2020, 15:49. Located Within [facility], CR, CHEST 2 VIEW, 02/08/2016, 10:44. FINDINGS: Surgical changes and devices: An apparent monitoring device is seen on the left. Lungs and pleura: An incomplete inspiratory result is noted, causing a crowded appearance to the lung markings. No focal infiltrates are seen. No pneumothorax or significant pleural effusions are seen. Mediastinum: Mediastinal contours appear normal. Heart size is normal. Bones and chest wall: No suspicious bony lesions. Overlying soft tissues appear unremarkable. IMPRESSION: Limited portable chest examination, without a significant cardiopulmonary abnormality identified. Dictated by: Sami Knight M.D. on 07/06/2020 at 15:12 Approved by: Sami Knight M.D. on 07/06/2020 at 15:13 CT scan - head: Radiologist's Impression: [address] [id number] Scan ReportSigned Patient: Liane Knowles AMR#: [id number]: 1975Acct:[id number]/Sex: 45 / FDate of Service: 07/06/20Loc: EDAccession Number: [id number] Procedure: CT head/brain wo con Ordering Provider: Elana Madsen D.O. PROCEDURE: CT HEAD/BRAIN WO CON INDICATIONS: altered mental status TECHNIQUE: Noncontrast 4.5 mm thick angled axial sections acquired from the foramen magnum to the vertex, with coronal and sagittal reformats. For radiation dose reduction, the following was used: automated exposure control, adjustment of mA and/or kV according to patient size. COMPARISON: Located Within [facility], MR, MR HEAD/BRAIN WO CON, 07/02/2020, 14:27. Located Within [facility], CT, SINUS SCREEN WO CONTRAST, 03/23/2016, 11:09. Located Within [facility], CR, XR CHEST 1V, 07/06/2020, 16:02. Located Within [facility], CT, CT HEAD/BRAIN WO CON, 05/05/2019, 16:36. FINDINGS: Image quality: This examination is limited by involuntary motion artifact. CSF spaces: Basal cisterns are patent. No extra-axial fluid collections. Ventricles are normal in size and shape. Brain: No midline shift. No intracranial masses or hemorrhage. Arora-white matter interface is normal. Skull and face: Calvarium and visualized facial bones are intact, without suspicious lesions. Sinuses: Visualized sinuses and mastoids are clear. IMPRESSION: Limited study demonstrating no significant, acute intracranial abnormality. Dictated by: Sami Knight M.D. on 07/06/2020 at 15:11 Approved by: Sami Knight M.D. on 07/06/2020 at 15:12 ECG Data Attestation: I personally reviewed and interpreted this ECG as follows: Interpretation: Sinus rhythm with a rate of 81, KS 154, QRS 86 and QTC of 448. Patient has inverted T-wave in 3, AVF with no other ST changes appreciated. MDM Narrative Medical decision making narrative: Patient comes in with unresponsive, she has a normal glucose, she is a known diabetic. Patient has had multiple episodes where she describes to her daughter who relays to us that she can not but can hear everything that is occurring around her. Patient appears to be protecting her airway. There is no signs of seizure activity appreciated, vital signs are normal here in the department. Patient labs, EKG and imaging reviewed with her primary care provider Dr. Martínez. Patient has normal vitals throughout epidose in department with benignl physical exam findings. Patient is alert, awake and appropriate in department. Discussed possible differential and potential causes. Discharge Plan Departure Patient Disposition: Home Clinical Impression: Altered mental status Instructions: DI for Altered Mental Status Activity Restrictions/Additional Instructions: Follow up with Dr. Martínez, call tomorrow to set up an appointment. Dr. Martínez and I reviewed your results and he will discuss the plan for further evaluation including completing your ziopatch and possibly and EEG. You may continue your home medications as prescribed. Return to the ER for fevers, recurrent or persistent symptoms, new chest pain, shortness of breath, persistent vomiting, black or bloody stools, inability to move or use her extremities, loss of bowel or bladder control or other new or concerning symptoms. Prescriptions: No Action calcium carbonate PO RF: 0 CHOLECALCIFEROL (VITAMIN D) 2,000 iu PO Qty: 0 RF: 0 (DME) Blood Glucose Test Strip 30g Qty: 100 RF: 3 (DME) lancets Misc See Rx Instructions .ROUTE .MEDSUPPLY Qty: 200 RF: 3 citalopram 20 mg tablet See Rx Instructions .ROUTE .COMPLEX Qty: 270 RF: 3 metformin 500 mg tablet 500 mg PO BID Qty: 180 RF: 1 mirtazapine [Remeron] 15 mg tablet 30 mg PO BEDTIME Qty: 180 RF: 3 lovastatin 20 mg tablet See Rx Instructions .ROUTE .COMPLEX Qty: 90 RF: 3 clonazepam 0.5 mg tablet See Rx Instructions .ROUTE .COMPLEX Qty: 180 RF: 3 omeprazole 40 mg capsule,delayed release(DR/EC) 40 mg PO BID Qty: 180 RF: 3 gabapentin 300 mg capsule See Rx Instructions PO .COMPLEX Qty: 180 RF: 5 Referrals: Tyler Martínez MD [Primary Care Provider] -
[2020-07-06 15:54] LABS: Add Manual Diff / Slide Review NO; Basophils Absolute Auto 100 /uL (0-100); Basophils Percent Auto 1.2 % (0-2); Eosinophils Absolute Auto 100 /uL (0-450); Eosinophils Percent Auto 1.2 % (2-4); Hematocrit 40.7 % (36-46); Hemoglobin 13.8 g/dL (12.0-16.0); Lymphocytes Absolute Auto 3200 /uL (1100-4500); Mean Corpuscular HGB Conc 33.9 % (30-36); Mean Corpuscular Hemoglobin 29.3 PG (26-34); Mean Corpuscular Volume 86.4 fL (80-100); Monocytes Absolute Auto 700 /uL (0-900); Monocytes Percent Auto 5.8 % (3-14); Neutrophils Absolute Auto 7600 /uL (1500-7000); Neutrophils Percent Auto 64.8 % (50-75); Platelet Count 302 X10^3/uL (150-400); Red Blood Cell Count 4.71 X10^6/uL (4.0-5.2); Red Cell Distribution Width 14.5 % (11.6-14.8); White Blood Cell Count 11.7 X10^3/uL (4.5-11.0)
[2020-07-06 15:59] LABS: INR 1.1 (0.9-1.3); Prothrombin Time 12.2 SECONDS (10.1-12.7)
[2020-07-06 16:02] LABS: Fractionated Inspired Oxygen 21; HCO3 ABG 26 mmol/L (22-26); Oxygen Saturation ABG 96 % (95-100); PO2 ABG 78 mmHg (80-100); TCO2 ABG 27 mmol/L (21-31); pH ABG 7.45 (7.35-7.45)
[2020-07-06 16:02] LABS: PTT Partial Thromboplastin Tim 31 SECONDS (26.4-36.2)
[2020-07-06 16:03] LABS: Lactate (Lactic Acid) 1.4 mmol/L (0.7-2.1)
[2020-07-06 16:05] LABS: Acetaminophen < 10 ug/mL (10-30); Alanine Aminotransferase 28 IU/L (<35); Albumin 4.5 g/dL (3.5-5.0); Albumin Globulin Ratio 1.3 (1.0-2.8); Alkaline Phosphatase 94 U/L (38-126); Aspartate Aminotransferase 27 IU/L (14-36); BUN Creatinine Ratio 12.5 (6-22); Bilirubin Total 0.4 mg/dL (0.2-1.3); Blood Urea Nitrogen 8 mg/dL (7-17); Calcium 9.7 mg/dL (8.4-10.2); Carbon Dioxide 31 mmol/L (22-32); Chloride 102 mmol/L (98-107); Creatine Kinase 48 U/L (30-135); Estimated Glomerular Filt Rate > 60.0 mL/min (>60); Ethanol (ETOH) < 10 mg/dL; Globulin 3.4 g/dL (1.7-4.1); Glucose 103 mg/dL (70-100); HEMOLYSIS < 15 (0-50); Potassium 4.4 mmol/L (3.4-5.1); Salicylate < 1.0 mg/dL (<20); Sodium 137 mmol/L (137-145); Total Protein 7.9 g/dL (6.3-8.2)
[2020-07-06] MEDS: SODIUM CHLORIDE 0.9% 1,000 ML 1000 ML IV (16:09)
[2020-07-06] MEDS: NALOXONE 0.4 MG/ML VIAL IV (16:12)
--- NOTE | 2020-07-06 16:13 | PC.NURSE ---
narcan given from crash cart not pixis
[2020-07-06 16:16] LABS: Troponin I < 0.012 ng/mL (0.01-0.034)
[2020-07-06 16:20] LABS: Prolactin 8.8 ng/mL (3.0-18.6)
[2020-07-06 16:55] LABS: Thyroid Stimulating Hormone 2.38 uIU/mL (0.47-4.68)
[2020-07-06 17:16] LABS: Bacteria Urine None Seen; RBC Urine None Seen (0-5/HPF); WBC Urine None Seen (0-5/HPF)
[2020-07-06 17:30] LABS: Appearance Urine UA CLEAR; Bilirubin Urine UA NEGATIVE (NEGATIVE); Color Urine UA YELLOW; Glucose Urine UA NEGATIVE (Negative); Ketones Urine UA NEGATIVE (NEGATIVE); Leukocyte Esterase Urine UA NEGATIVE (NEGATIVE); Nitrite Urine UA NEGATIVE (Negative); Occult Blood Urine UA NEGATIVE (Negative); Protein Urine UA NEGATIVE (Negative); Urobilinogen Urine UA 0.2 E.U./dL (0.2)
[2020-07-06 17:30] LABS: Ammonia (NH3) < 9 umol/L (9-30)
[2020-07-06 17:31] LABS: pH Urine UA 7.5 (4.5-8.0)
[2020-07-06 17:34] LABS: UR Morphine/Opiate cutoff 300 Negative (Negative); Ur Creatinine Normal (Normal); Ur Specific Gravity Normal (Normal); Urine Amphetamines Negative (Negative); Urine Cocaine Negative (Negative); Urine MDMA Negative (Negative); Urine Methamphetamines Negative (Negative); Urine Phencyclidine Negative (Negative); Urine Tetrahydrocannabinol Negative (Negative); Urine pH Normal (Normal)
[2020-07-06 17:35] LABS: Urine Barbiturates Negative (Negative); Urine Benzodiazepines Negative (Negative); Urine Methadone Negative (Negative); Urine Oxycodone Negative (Negative); Urine Tricyclic Antidepressant Negative (Negative)
[2020-07-06 17:37] LABS: Culture Indicated Urine Cult Not Indicated; Urine Comments Microscopic Normal
== END 2020-07-06 19:02 | disposition home or self-care (01) ==
PROVIDERS: Emergency Provider Emergency Medicine; Family Provider Family Medicine; PCP Family Medicine
DX: R41.82 Altered mental status, unspecified (principal); E66.9 Obesity, unspecified; E11.9 Type 2 diabetes mellitus without complications
CPT/HCPCS: 36415; 36600; 70450; 71045; 80053; 80305; 80320; 80329; 81001; 82140; 82550; 82805; 82962; 83605; 84146; 84443; 84484; 85025; 85610; 85730; 87040; 93005; 93010; 96361; 96374; 99283; 99284; G0480; J2310